=== PATIENT | female | born 1965 | race Caucasian/White ===

== ENCOUNTER 2020-10-08 14:15 | Outpatient (RCR) | payer OTHER, SELFPAY | END 2020-11-12 23:59 | LOC: IMMUN 14:15 | PROVIDERS: PCP Family Medicine; Visit Provider Family Medicine | DX: Z23 Encounter for immunization (principal) | CPT/HCPCS: 0001A; 91300 ==

== ENCOUNTER 2022-02-08 09:25 | Emergency (ER) | payer BC, SELFPAY ==
[2022-02-08 09:28] VITALS: BP 201/92; PULSE 76; RESP 18; TEMP 36.1; O2SAT 99; BMI 34.7
--- NOTE | 2022-02-08 09:38 | RAD_ITS ---
STUDY: X-RAY - RIGHT FOOT CLINICAL: Female, 56 years old. Injury TECHNIQUE: 3 view(s) of the foot. COMPARISON: None. FINDINGS: There is a plantar calcaneal spur. Normal talus and remaining tarsal bones. Normal visualized subtalar, talonavicular, calcaneocuboid, tarsal and tarsometatarsal articulations. Mild plantar periarticular spurring of the head of the first metatarsal. Normal 2-5 metatarsi. Normal metatarsophalangeal joint of the great toe. Mild periarticular spurring of the tibial and fibular sesamoid bones. Normal interphalangeal joint of the great toe. Normal phalanges of the great toe. Normal second through fifth metatarsophalangeal joints. Normal interphalangeal joints and phalanges of the lesser toes. The soft tissue structures are unremarkable. There is no demonstrated fracture. RAD/Foot min 3 Views IMPRESSION: No acute fracture of the right foot. Incidental note of a plantar calcaneal spur as well as mild degenerative change along the head of the first metatarsal. Electronically Signed: Armando Esqueda MD at 9:58 EDT ,
--- NOTE | 2022-02-08 09:38 | ED.VIS.LOWEX ---
HPI History of Present Illness Chief Complaint: Lower Extremity Injury Informant: patient Onset/Context/Timing Onset: Yesterday Context: Sudden Onset Timing: Continuous Quality of Pain: Aching Location: R midfoot dorsally Current Severity: Moderate Maximum Severity: Moderate Worsened by: weight bearing Relieved by: rest Associated Symptoms Associated Symptoms: Negative for Parasthesia or Weakness Narrative Narrative: Patient states she was playing softball with some family yesterday, she was running to first base after she hit the ball, and she stumbled and felt like she somehow twisted her right foot without twisting at the ankle, injuring it. It has been hurting ever since. She did not fall or have other injury. She cannot put weight on it. [facility] Medical History Encounter for screening for COVID-19 Hypertension Home Medications estradiol 0.0375 mg/24 hr semiweekly transdermal patch patch transdermal MONTHLY 05/27/21 [History Last Taken Unknown] Allergy/AdvReac Type Severity Reaction Status Date / Time No Known Allergies Allergy Unverified 02/08/22 09:25 Social History (System 08/10/19 @ 12:01 by Madeleine Nayak) Smoking Status: Unknown if ever smoked ROS ROS ED Constitutional Constitutional ED: Denies chills or fever(s) Musculoskeletal Musculoskeletal: Reports extremity pain; Denies neck pain Integumentary Denies Abrasions, rash or wounds Neurologic Neurologic: Denies paresthesias or weakness EXAM Physical Exam Const Vital Signs: 02/08/22 09:28 Temperature 96.9 F L Temperature Source Temporal Pulse Rate 76 Respiratory Rate 18 Blood Pressure 201/92 H Blood Pressure Mean 128 Pulse Ox 99 Oxygen Delivery Method Room Air Positive well nourished and well developed General Appearance ED: well developed and NAD Neck full ROM and supple Back/Spine normal ROM and normal to inspection Extremity normal to inspection and full ROM Extremity Narrative: Tender at the tibial aspect of the right dorsal midfoot. There are no deformities or significant swelling. She has no tenderness elsewhere in the foot, she has no tenderness in the arch or the toes where the heel, and no tenderness in the ankle or proximal fibula. Neurovascular intact distally. Neuro oriented x3, no focal motor deficits and no sensory deficits noted Sensorium / Orientation: alert Psych mental status grossly normal and thought process normal Skin no wounds Rashes: no rashes MDM MDM MDM Narrative Medical decision making narrative: Three-view x-ray series right foot on my interpretation negative. Radiology in agreement. Patient will be treated as a sprain, she is given crutches and offered a postop shoe which she may not need because she can move her toes okay, and outpatient follow-up advised if it is not improving within 1 to 2 weeks. Radiography Diagnostic Testing: Clinical Impression(s) from Imaging Studies Foot X-Ray 02/08/22 09:38 IMPRESSION: No acute fracture of the right foot. Incidental note of a plantar calcaneal spur as well as mild degenerative change along the head of the first metatarsal. Electronically Signed: Armando Esqueda MD at 9:58 EDT , Discharge Plan Triage Chief Complaint: Lower Extremity Injury ED Provider: Jorge L Tobar Dx/Rx/DC Orders Clinical Impression: Right foot sprain Instructions: ED Foot Sprain Prescriptions: No Action estradiol 0.0375 mg/24 hr patch semiweekly transdermal MONTHLY Primary Care Provider: BIANCA WESTBROOK Referrals: Johny Sanchez DPM [Med Staff - Active Staff] - 1-2 Weeks (if not improving) [facility] Doctor,Out of [Non-Staff] - Disposition Disposition: Home, Self Care
== END 2022-02-08 10:29 | disposition home or self-care (01) ==
PROVIDERS: Emergency Provider Emergency Medicine; PCP Internal Medicine; Visit Provider Emergency Medicine
DX: S93.601A Unspecified sprain of right foot, initial encounter (principal); I10 Essential (primary) hypertension; X50.1XXA Overexertion from prolonged static or awkward postures, initial encounter; Y93.64 Activity, baseball
CPT/HCPCS: 73630; 99283